=== PATIENT | male | born 1965 | race Caucasian/White ===

== ENCOUNTER → 2021-10-26 11:55 | Outpatient (CLI) | payer OTHER, SELFPAY ==
--- NOTE | ~2021-10-26 | MR_ITS ---
EXAMINATION: MR shoulder RT w con DATE: 10/26/2021 13:46 INDICATION: Right shoulder pain TECHNIQUE: Magnetic resonance imaging (MRI) of the right shoulder was performed following intra-mirian cular gadolinium contrast injection and without intravenous contrast. Details of the glenohumeral cornell nt injection have been dictated separately. Sequences included axial T2-weighted FS FSE, axial T1-we ighted FS FSE, coronal oblique T1-weighted FS FSE, coronal oblique T2-weighted FSE, sagittal T2-weigh kristy FS FSE, sagittal T1-weighted FSE, and ABER (abduction external rotation) T1-weighted FS FSE. COMPARISON: None. FINDINGS: Coracoacromial arch: The acromion undersurface is curved in morphology (type II). The coracoacromial ligament is normal. M ild acromioclavicular osteoarthritis. Rotator cuff: Moderate tendinopathy of the distal supraspinatus tendon and mild infraspinatus tendinopathy. There i s a shallow articular sided fraying along the superior facet insertion of the supraspinatus tendon be st appreciated on the ABER imaging with involves a negligible proportion of the tendon thickness. Add itional deeper articular sided tear located approximately 1 cm from the greater tuberosity insertion of the distal infraspinatus tendon also best appreciated on the ABER imaging which extends proximally 1.5 cm AP and with contrast extending through approximately one third of the tendon thickness. There is however no appreciable retracted tear margin suggesting the contrast signal over estimates the tu ft of the tear of the signal likely representing a combination of both a slightly shallower tear and deeper contrast imbibition into the substance of the tendon. The subscapularis and teres minor tendon s are normal. Normal rotator cuff muscle bulk and signal. Biceps tendon, glenoid labrum and glenohumeral cartilage: Bicipital tenodesis with resection of the intra-articular portion of the long head biceps tendon and with anchor site located along the humeral head at the cephalad margin of the lesser tuberosity. The tenodesis appears intact but with fusiform thickening of the extra articular portion of the tendon at the level of the bicipital groove consistent with moderate tendinopathy. There is some fraying of th e free edge of the superior labrum where the long head biceps tendon has been resected. There is a sh allow contrast filled cleft along the articular side of the anterosuperior labrum consistent with a p artial-thickness tear. There is an additional shallow contrast-filled tear along the chondral labral junction of the 10:00-11:30 position of the posterior superior glenoid labrum. There is partial thick ness cartilage loss with relatively smooth chondral surface at the superior to posterior superior gle noid. Additional cartilage loss which appears to involve the majority of the cartilage thickness sophie g the inferomedial aspect of the humeral head but without degenerative subchondral changes. Bones and other: Normal marrow signal with no edema, fracture or abnormal marrow replacing process. Contrast extends into the subacromial/subdeltoid and subcoracoid bursae through a defect at the rotator cuff interval with tear of the medial side of the coracohumeral ligament. IMPRESSION: 1. Moderate supraspinatus and mild infraspinatus tendinopathy with shallow articular sided fraying at the distal supraspinatus tendon and slightly deeper articular sided tear still involving no greater than one third of the tendon thickness along the more posterior infraspinatus tendon. 2. Intact bicipital tenodesis with moderate tendinopathy of the tendon at the level of the intertuber cular groove. 3. Mild glenohumeral osteoarthritis with partial-thickness tears at the anterosuperior and posterior superior glenoid labrum. 4. Extra articular extravasation of contrast into the subacromial/subdeltoid and subcoracoid bursae o ccurr
--- NOTE | ~2021-10-26 | XR_ITS ---
EXAMINATION: XR fl inj shoulder RT - MR/CT DATE: 10/26/2021 13:17 INDICATION: Right shoulder pain TECHNIQUE: A time-out was performed to verify the patient's name, date of , and procedure to b e performed. The procedure including the risks, benefits, and alternatives was discussed with the pat ient. Risks discussed included bleeding and infection. The patient understood the risks and agreed to proceed. The skin overlying the rotator cuff interval of the right glenohumeral joint was prepped a nd draped in usual sterile fashion. Anesthetic was administered with 1% lidocaine subcutaneously. A 22 G needle was advanced under fluoroscopic guidance into the joint. Injection of 1 mL of Omnipaque 240 confirmed intra-articular position of the needle. Subsequently, injectate consisting of 12 mL o f 2:1:1 mixture of sterile saline:Omnipaque 240:1% lidocaine mixed 200:1 with 529 mg/mL Multihance ga dolinium contrast was injected. Washout of contrast was seen confirming intra-articular administratio n. The needle was removed and the entry site was cleaned and dressed. There were no immediate compli cations. Fluoroscopy exposure time was 0.1 minutes. The total number of images was 75. FINDINGS: Real-time fluoroscopy demonstrates the needle in the right glenohumeral joint. IMPRESSION: 1. Successful right glenohumeral joint injection of dilute gadolinium contrast mixture for subsequent MRI arthrogram which will be dictated separately. Reviewed, dictated and finalized at location B.
== END ==
DX: M25.511 Pain in right shoulder (principal)
CPT/HCPCS: 23350; 73222; 77002; A9577; Q9966